=== PATIENT | female | born 1965 | race Two or more races ===

== ENCOUNTER 2017-01-05 21:20 | Inpatient (IN) | payer MEDICAID ==
[~2017-01-05] VITALS: Ht 167.6 cm; Wt 151.8 kg
[2017-01-05 21:50] LABS: Basophils # (auto) 0 uL; Basophils % (auto) 0.6 % (0.0-2.0); CONDITION Y; DEFINITIVE SEE PRINTOUT; Eosinophils # (auto) 0.1 uL; Eosinophils % (auto) 1.1 % (0.0-7.0); Hematocrit 21.1 % (36.0-46.0); Lymphocytes # (auto) 2.2 uL; Lymphocytes % (auto) 30.5 % (10.0-50.0); Mean Corpuscular Hemoglobin 29.5 pg (28.0-32.0); Mean Corpuscular Hgb Conc. 32.9 g/dL (32.0-36.0); Mean Corpuscular Volume 89.7 fL (80.0-100.0); Mean Platelet Volume 10.6 fL (7.4-10.4); Monocytes # (auto) 0.6 uL; Monocytes % (auto) 8.7 % (0.0-12.0); Neutrophils # (auto) 4.2 uL; Neutrophils % (auto) 59.1 % (37.0-80.0); Platelet Count (auto) 99 10^3/uL (140-450); Red Cell Distribution Width 17.6 % (11.6-16.0); White Blood Cell 7.1 10^3/uL (4.4-10.8)
[2017-01-05 21:58] LABS: Hemoglobin 6.9 g/dL (12.2-16.2)
[2017-01-05 22:02] LABS: INR 1.19 (0.9-1.15)
[2017-01-05 22:13] LABS: Albumin 2.4 g/dL (3.4-5.0); Alkaline Phosphatase 111 U/L (45-117); Anion Gap 8 (5-15); Aspartate Aminotransferase 28 U/L (15-37); BUN/Creatinine Ratio 20.7; Bilirubin, Total 1.2 mg/dL (0.2-1.0); Blood Urea Nitrogen 12 mg/dL (7-18); Calcium 7.9 mg/dL (8.5-10.1); Carbon Dioxide 25 mmol/L (21-32); Chloride 108 mmol/L (98-107); GFR African American 142 mL/min; GFR Non-African American 117 mL/min; Glucose 128 mg/dL (74-106); Potassium 3.7 mmol/L (3.5-5.1); Sodium 141 mmol/L (136-145); Total Protein 5.8 g/dL (6.4-8.2)
[2017-01-05] MEDS ORDERED: ONDANSETRON HCL 4 MG/2 ML VIAL IV ONE (22:30)
[2017-01-05] MEDS ORDERED: MORPHINE SULFATE 4 MG/ML SYRG IV ONE (22:30)
[2017-01-05] MEDS ORDERED: SODIUM CHLORIDE 0.9% 1,000 ML IV ONE (22:45)
[2017-01-05] MEDS ORDERED: IOHEXOL 300 MG/ML 100ML BOTTLE IJ ONE (23:15)
[2017-01-05 23:45] VITALS: BP 150/84
[2017-01-05] MEDS ORDERED: ONDANSETRON HCL 4 MG/2 ML VIAL ONE (23:54)
[2017-01-06] VITALS (20 sets, daily range): BP systolic 121–168; BP diastolic 55–88
[2017-01-06] MEDS ORDERED: ACETAMINOPHEN 325 MG TAB PO ONE (03:00)
[2017-01-06] MEDS ORDERED: ALBUTEROL SULF 2.5 MG/0.5ML(0.5%) NEB SOLN NEB PRN (05:45)
[2017-01-06] MEDS ORDERED: NITROGLYCERIN 0.4 MG SL TAB SL PRN (05:45)
[2017-01-06] MEDS ORDERED: ONDANSETRON HCL 4 MG/2 ML VIAL IV ONE (05:45)
[2017-01-06] MEDS ORDERED: MORPHINE SULFATE 4 MG/ML SYRG IV ONE (05:45)
[2017-01-06] MEDS ORDERED: ONDANSETRON HCL 4 MG/2 ML VIAL IV PRN (05:45)
[2017-01-06] MEDS ORDERED: MORPHINE SULF INJ 2 MG/ML SYRINGE 1ML IV PRN (05:45)
[2017-01-06] MEDS ORDERED: MORPHINE SULFATE 4 MG/ML SYRG IV PRN (05:45)
[2017-01-06] MEDS ORDERED: LACTULOSE 20Gm/30ML SOLN PO PRN (05:45)
[2017-01-06] MEDS ORDERED: DEXTROSE (50%) 50ML SYRG IV PRN ×2 (05:45)
[2017-01-06 05:52] LABS: Amylase 35 U/L (25-115)
[2017-01-06 06:13] LABS: Hematocrit 19.2 % (36.0-46.0)
[2017-01-06 06:22] LABS: Hemoglobin 6.4 g/dL (12.2-16.2)
[2017-01-06] MEDS: InsuLIN REG 1unit/0.01ml Soln (100units/ml) SC SCH ×4 (06:25→22:57)
[2017-01-06] MEDS: ACCU-CHEK COMFORT CURVE STRIP VI SCH ×4 (06:26→22:57)
[2017-01-06] MEDS ORDERED: PARoxetine 20 MG TAB PO SCH (10:00)
[2017-01-06] MEDS ORDERED: PANTOPRAZOLE 40 MG/10 ML VIAL IV SCH (10:00)
[2017-01-06 14:24] LABS: Hematocrit 22.8 % (36.0-46.0); Hemoglobin 7.6 g/dL (12.2-16.2)
[2017-01-06] MEDS: FERROUS SULFATE 325 MG TAB PO SCH (17:56)
[2017-01-06] MEDS: metFORMIN HYDROCHLORIDE 500 MG TAB PO SCH (17:57)
[2017-01-06 18:08] LABS: Hematocrit 23.7 % (36.0-46.0); Hemoglobin 7.9 g/dL (12.2-16.2)
[2017-01-06] MEDS ORDERED: GABA-497 PO (18:11)
[2017-01-06] MEDS ORDERED: METF-370 PO (18:11)
[2017-01-06] MEDS ORDERED: FERR1TAB36 PO (18:11)
[2017-01-06] MEDS ORDERED: POTA10TA51 PO (18:11)
[2017-01-06] MEDS ORDERED: FURO20TA PO (18:11)
[2017-01-06] MEDS ORDERED: FUROSEMIDE 20 MG TAB PO ONE (18:30)
[2017-01-06] MEDS ORDERED: POTASSIUM CHL 10 Meq TABLET PO ONE (18:30)
[2017-01-06] MEDS ORDERED: GABAPENTIN 300 MG CAP PO SCH (22:00)
[2017-01-07] MEDS ORDERED: ACETAMINOPHEN 500 MG TAB PO PRN (01:00)
[2017-01-07 01:31] LABS: Urine Bilirubin Negative (Negative); Urine Blood Negative /uL (Negative); Urine Color Yellow (Yellow); Urine Glucose Normal (Normal); Urine Ketone Negative (Negative); Urine Nitrite Negative (Negative); Urine RBC <1 /hpf (0 - 4); Urine Squamous Epithelial Cell FEW /hpf (<5); Urine Urobilinogen Normal (Negative); Urine pH 5.5 (5.0-8.0)
[2017-01-07 05:00] VITALS: BP 141/82
[2017-01-07] MEDS: ACCU-CHEK COMFORT CURVE STRIP VI SCH (05:51)
[2017-01-07] MEDS: InsuLIN REG 1unit/0.01ml Soln (100units/ml) SC SCH (05:53)
[2017-01-07] MEDS: metFORMIN HYDROCHLORIDE 500 MG TAB PO SCH (05:54)
[2017-01-07] MEDS ORDERED: PNEUMOCOCCAL VACC POLYS 25 MCG/0.5 ML VIAL IM ONE (06:00)
[2017-01-07 06:37] LABS: Basophils # (auto) 0 uL; Basophils % (auto) 0.3 % (0.0-2.0); CONDITION Y; DEFINITIVE SEE PRINTOUT; Eosinophils # (auto) 0 uL; Eosinophils % (auto) 1.6 % (0.0-7.0); Hematocrit 21.9 % (36.0-46.0); Hemoglobin 7.4 g/dL (12.2-16.2); Lymphocytes # (auto) 0.9 uL; Lymphocytes % (auto) 33.6 % (10.0-50.0); Mean Corpuscular Hemoglobin 30.2 pg (28.0-32.0); Mean Corpuscular Hgb Conc. 33.7 g/dL (32.0-36.0); Mean Corpuscular Volume 89.7 fL (80.0-100.0); Mean Platelet Volume 10.6 fL (7.4-10.4); Monocytes # (auto) 0.3 uL; Monocytes % (auto) 10.3 % (0.0-12.0); Neutrophils # (auto) 1.5 uL; Neutrophils % (auto) 54.2 % (37.0-80.0); Red Cell Distribution Width 16.4 % (11.6-16.0); White Blood Cell 2.8 10^3/uL (4.4-10.8)
[2017-01-07 06:42] LABS: Platelet Count (auto) 49 10^3/uL (140-450)
[2017-01-07 07:20] LABS: Albumin 2.1 g/dL (3.4-5.0); BUN/Creatinine Ratio 14.3; Bilirubin, Total 1.4 mg/dL (0.2-1.0); Calcium 7.6 mg/dL (8.5-10.1); Total Protein 5.1 g/dL (6.4-8.2)
[2017-01-07] MEDS: FERROUS SULFATE 325 MG TAB PO SCH (07:56)
[2017-01-07] MEDS ORDERED: DOCUSATE SOD 100 MG CAP PO PRN (08:00)
[2017-01-07 09:00] VITALS: BP 149/82
[2017-01-07 09:22] VITALS: BP 136/76
[2017-01-07] MEDS ORDERED: FUROSEMIDE 20 MG TAB PO SCH (10:00)
[2017-01-07] MEDS ORDERED: POTASSIUM CHL 10 Meq TABLET PO SCH (10:00)
== END 2017-01-07 10:00 | disposition home or self-care (01) | DRG 663 ==
LOC: EDBD 21:20 → ER 21:23 → TELE 23:24 → DOU IN ICU 01-06 12:48 → TELE-CENTR 01-06 22:17
PROVIDERS: ADMIT Family Medicine; ATTEND Family Medicine
PROC: 30233L1 Transfusion of Nonautologous Fresh Plasma into Peripheral Vein, Percutaneous Approach (ICD-10-PCS; principal; 2017-01-06)
PROC: 30233N1 Transfusion of Nonautologous Red Blood Cells into Peripheral Vein, Percutaneous Approach (ICD-10-PCS; 2017-01-06)
PROC: 30233K1 Transfusion of Nonautologous Frozen Plasma into Peripheral Vein, Percutaneous Approach (ICD-10-PCS; 2017-01-06)
DX: D50.0 Iron deficiency anemia secondary to blood loss (chronic) (principal); D69.6 Thrombocytopenia, unspecified; Z68.43 Body mass index [BMI] 50.0-59.9, adult; E11.65 Type 2 diabetes mellitus with hyperglycemia; E66.01 Morbid (severe) obesity due to excess calories; D25.9 Leiomyoma of uterus, unspecified; N92.0 Excessive and frequent menstruation with regular cycle; R07.89 Other chest pain; I10 Essential (primary) hypertension; M17.0 Bilateral primary osteoarthritis of knee; J45.909 Unspecified asthma, uncomplicated; F32.9 Major depressive disorder, single episode, unspecified; Z87.42 Personal history of other diseases of the female genital tract; Z23 Encounter for immunization; Z83.3 Family history of diabetes mellitus; Z82.49 Family history of ischemic heart disease and other diseases of the circulatory system
CPT/HCPCS: 36415; 36430; 71010; 71260; 74177; 80053; 81001; 82150; 82962; 83036; 83690; 84484; 85014; 85018; 85025; 85610; 86850; 86900; 86901; 86920; 87081; 93005; 94640; 96374; 96375; 96376; C9113; J2405

== ENCOUNTER 2017-01-14 23:27 | Emergency (ER) | payer MEDICAID ==
[~2017-01-14] VITALS: Ht 167.6 cm; Wt 146.1 kg
[~2017-01-14 23:27] MED LIST: FERR1TAB36 PO; FURO20TA PO; GABA-497 PO; METF-370 PO; POTA10TA51 PO
[2017-01-15] MEDS ORDERED: ONDANSETRON ODT 4 MG TAB PO ONE ×2 (00:03→00:15)
[2017-01-15] MEDS ORDERED: diphenhdrAMINE HCL 25 MG CAP PO ONE ×2 (00:03→00:15)
[2017-01-15 07:49] VITALS: BP 150/82
== END 2017-01-15 08:04 | disposition home or self-care (01) ==
LOC: ER 23:30
DX: T78.40XA Allergy, unspecified, initial encounter (principal); K02.9 Dental caries, unspecified; E11.40 Type 2 diabetes mellitus with diabetic neuropathy, unspecified; I10 Essential (primary) hypertension; Z88.0 Allergy status to penicillin; Z79.899 Other long term (current) drug therapy; Z98.51 Tubal ligation status
CPT/HCPCS: 99283; Q0162

== ENCOUNTER 2017-02-13 19:15 | Emergency (ER) | payer MEDICAID ==
[~2017-02-13] VITALS: Ht 167.6 cm; Wt 138.8 kg
[2017-02-13 19:25] VITALS: BP 189/88
[2017-02-13] MEDS ORDERED: InsuLIN REG 1unit/0.01ml Soln (100units/ml) IV ONE (21:15)
[2017-02-13] MEDS ORDERED: SODIUM CHLORIDE 0.9% 1,000 ML IV ONE (21:15)
== END 2017-02-14 00:26 | disposition home or self-care (01) ==
LOC: ER 19:20
DX: S90.121A Contusion of right lesser toe(s) without damage to nail, initial encounter (principal); E11.65 Type 2 diabetes mellitus with hyperglycemia; J45.909 Unspecified asthma, uncomplicated; W22.8XXA Striking against or struck by other objects, initial encounter; Y93.89 Activity, other specified; Y99.8 Other external cause status; Y92.89 Other specified places as the place of occurrence of the external cause; Z79.4 Long term (current) use of insulin; Z88.0 Allergy status to penicillin; Z91.013 Allergy to seafood
CPT/HCPCS: 73660; 82962; 96361; 96374; 99284; J1815; J7030

== ENCOUNTER 2018-04-26 18:02 | Emergency (ER) | payer MEDICAID ==
[~2018-04-26] VITALS: Ht 167.6 cm; Wt 122.9 kg
[~2018-04-26 18:02] MED LIST changes: -GABA-497 PO; +GABA300C10 PO
[2018-04-26 18:10] VITALS: BP 177/90
[2018-04-26 19:46] LABS: Basophils # (auto) 0 uL; Basophils % (auto) 0.2 % (0.0-2.0); Eosinophils # (auto) 0.1 uL; Monocytes # (auto) 0.5 uL; Monocytes % (auto) 10.9 % (0.0-12.0); Red Cell Distribution Width 16.4 % (11.8-14.3)
[2018-04-26 19:48] LABS: Eosinophils % (auto) 1.8 % (0.0-7.0); Hematocrit 35.4 % (36.0-46.0); Hemoglobin 11.9 g/dL (12.2-16.2); Lymphocytes % (auto) 23.6 % (10.0-50.0); Mean Corpuscular Hemoglobin 33.7 pg (28.0-32.0); Mean Corpuscular Hgb Conc. 33.6 g/dL (32.0-36.0); Mean Corpuscular Volume 100.4 fL (80.0-100.0); Neutrophils # (auto) 2.6 uL; Neutrophils % (auto) 63.5 % (37.0-80.0); Nucleated Red Blood Cells % 0.3 %; Platelet Count (auto) 40 10^3/uL (140-450); Red Blood Cells 3.53 10^6/uL (4.0-5.20); White Blood Cell 4.1 10^3/uL (4.4-10.8)
[2018-04-26 20:03] LABS: Albumin 2.3 g/dL (3.4-5.0); BUN/Creatinine Ratio 13.2; Calcium 7.4 mg/dL (8.5-10.1); Potassium 3.2 mmol/L (3.5-5.1)
[2018-04-26 20:05] LABS: Total Protein 6.1 g/dL (6.4-8.2)
== END 2018-04-27 04:11 | disposition left against medical advice (07) ==
LOC: ER 18:07
DX: M25.561 Pain in right knee (principal); Z53.21 Procedure and treatment not carried out due to patient leaving prior to being seen by health care provider
CPT/HCPCS: 36415; 73562; 73610; 80053; 82962; 85025

== ENCOUNTER 2018-08-06 15:54 | Emergency (ER) | payer MEDICAID ==
[~2018-08-06] VITALS: Ht 167.6 cm; Wt 136.1 kg
[2018-08-06 16:00] VITALS: BP 108/64
[2018-08-06 18:00] LABS: Basophils # (auto) 0 uL; Basophils % (auto) 0.1 % (0.0-2.0); Eosinophils # (auto) 0 uL; Hemoglobin 15.5 g/dL (12.2-16.2); Mean Corpuscular Hemoglobin 35.8 pg (28.0-32.0); Monocytes # (auto) 0.2 uL; Neutrophils # (auto) 7.3 uL; Nucleated Red Blood Cells % 0.4 %; Platelet Count (auto) 83 10^3/uL (140-450)
[2018-08-06 18:01] LABS: Albumin 2.2 g/dL (3.4-5.0); Calcium 8.4 mg/dL (8.5-10.1); Magnesium 1.6 mg/dL (1.6-2.6); Potassium 3.6 mmol/L (3.5-5.1)
[2018-08-06 18:03] LABS: Eosinophils % (auto) 0.1 % (0.0-7.0); Hematocrit 48.4 % (36.0-46.0); Lymphocytes # (auto) 0.9 uL; Lymphocytes % (auto) 10.4 % (10.0-50.0); Mean Corpuscular Hgb Conc. 32.1 g/dL (32.0-36.0); Mean Corpuscular Volume 111.7 fL (80.0-100.0); Monocytes % (auto) 2.6 % (0.0-12.0); Neutrophils % (auto) 86.8 % (37.0-80.0); Red Blood Cells 4.33 10^6/uL (4.0-5.20); Red Cell Distribution Width 19.6 % (11.8-14.3); White Blood Cell 8.4 10^3/uL (4.4-10.8)
[2018-08-06 18:11] LABS: BUN/Creatinine Ratio 7.9; Bilirubin, Total 4.7 mg/dL (0.2-1.0)
[2018-08-06] MEDS ORDERED: ASPirin 325 MG TAB PO ONE (18:45)
== END 2018-08-06 19:00 | disposition left against medical advice (07) ==
LOC: EDBD 15:54 → ER 15:58
DX: R10.30 Lower abdominal pain, unspecified (principal); R11.2 Nausea with vomiting, unspecified; K59.00 Constipation, unspecified; Z53.21 Procedure and treatment not carried out due to patient leaving prior to being seen by health care provider
CPT/HCPCS: 36415; 80053; 82150; 83690; 83735; 84484; 85025